=== PATIENT | female | born 1945 | race Caucasian/White ===

== ENCOUNTER 2016-12-17 11:49 | Inpatient (IN) | payer MEDICARE, OTHER ==
[~2016-12-17] VITALS: Ht 165.1 cm; Wt 68.0 kg
--- NOTE | ~2016-12-17 | ECH ---
Transthoracic Echocardiography Report (TTE) Demographics Patient Name VIBHA FANG Date of Study 12/17/2016 Patient Number [id number] Visit Number [id number] Date of 1945 Room Number 302 Accession Number [id number] Gender Female Age 71 year(s) Referring Armando Clancy Microscopist Carol Casillas MD [facility] Physician Interpreting Renny Hannah MD Reprographics Associate Physician Supervising Ordering Physician Armando Clancy MD/AMANDA GUTIÉRREZ Nurse Stress Garment Patternmaker Conclusions Summary Technically adequate exam. The estimated left ventricular ejection fraction is 30-35%. Diastolic assessment reveals Grade I diastolic dysfunction. Moderate mitral regurgitation by color Doppler. Mild tricuspid regurgitation by color Doppler. There is moderate pulmonary hypertension. The pulmonary pressure (RVSP) is 47 mmHg. Procedure Type of Study TTE procedure:Echo Complete SF. Procedure Date Date: 12/17/2016 Start: 03:49 PM Technical Quality: Adequate visualization Indications:Shortness of breath and Pulmonary embolus. Additional Indications:Hypoxia Appropriate Use Criteria: 9 Height: 65 inches Weight: 155 pounds BSA: 1.78 m Rhythm: NSR HR: 96 bpm BP: 135/81 mmHg M-Mode/2D Measurements LV Diastolic Dimension: 4.46 cm LV Systolic Dimension: 3.2 cm LV Septum Diastolic: 0.97 cm LV PW Diastolic: 0.94 cm AO Root Dimension: 2.85 cm Cardiac Output: 2.43 l/min LA Dimension: 3.62 cm Cardiac Index: 1.37 l/min*m RV Diastolic Dimension: 2.92 cm LA volume index: 21 ml/m LVOT: 1.83 cm LVOT VTI: 9.61 cm RV Base: 2.5 cm LV Stroke volume: 25.26 ml RV Mid: 1.9 cm LV Stroke volume index: 14.19 ml/m TAPSE: 1.9 cm TDI-S': 12 cm/s Doppler Measurements AV Peak Velocity: 0.9 m/s MV Peak E-Wave: 1.04 m/s AV Peak Gradient: 3.24 mmHg MV Peak A-Wave: 1.13 m/s AV Mean Gradient: 1.92 mmHg MV E/A Ratio: 0.91 LVOT Peak Velocity: 0.54 m/s MV P1/2t: 31.8 msec AV Area (Continuity):1.47 cm MV Deceleration Time: 118.8 msec TR Velocity:3.13 m/s MV Area (PHT): 6.92 cm TR Gradient:39.16 mmHg PV Peak Velocity: 0.69 m/s Estimated RAP:8 mmHg PV Peak Gradient: 1.93 mmHg Estimated RVSP: 47 mmHg Estimated PASP: 47.16 mmHg E' Septal Velocity: 0.06 m/s A' Septal Velocity: 0.07 m/s E' Lateral Velocity: 0.07 m/s A' Lateral Velocity: 0.12 m/s RA Area: 7.68 cm Findings Left Ventricle Normal left ventricle size and function. Diastolic assessment reveals Grade I diastolic dysfunction. Right Ventricle Normal right ventricle structure and function. Left Atrium Normal left atrial size. Lipomatous interatrial septum. Right Atrium Normal right atrial size. Mitral Valve Normal mitral valve structure and function. Moderate mitral regurgitation by color Doppler. Aortic Valve Normal aortic valve structure and function. Tricuspid Valve Normal tricuspid valve structure and function. Mild tricuspid regurgitation by color Doppler. There is moderate pulmonary hypertension. The pulmonary pressure (RVSP) is 47 mmHg. Pulmonic Valve The pulmonic valve is not well visualized. Pericardial Effusion No evidence of pericardial effusion. Miscellaneous Visualized portions of the aortic root and ascending aorta appear normal in size. Pleural Effusion No evidence of pleural effusion. Contractility Score LV regional wall motion:(0-Non visualized 1-Normal 2-Hypokinesis 3-Akinesis 4-Dyskinesis 5-Aneurysm) Signature
--- NOTE | ~2016-12-17 | CST ---
Cardiac Perfusion Imaging Demographics Patient Name LEONCIO Burch Gender Female Patient Number [id number] Race Visit Number [id number] Ethnicity Corporate ID Room Number 408 Accession Number [id number] Height 65 inches Date of 1945 Weight 155 pounds Age 71 year(s) BSA 1.78 m Referring Physician Renny Hannah MD BMI 25.79 kg/m Interpreting Physician [facility] Date of study 12/22/2016 Kelly Mckeon Supervising MD/MATYP Kelly ANDRES Technologist Lima Mckeon Ordering Physician Renny Hannah MD Stress Sheridan Mellisa welding technician Stress ECG Reading [facility] Nurse Kylie Emanuel Physician Kelly Marshall The procedure was explained in detail to the patient. Risks, complications and alternative treatments were reviewed. Written consent was obtained. Medications Reviewed with Patient prior to Procedure. Procedure Procedure Type: Nuclear Stress Test:Cardiac Study SF Procedure Start time: 12/22/2016 07:50 Indications: Dyspnea, Elevated Troponin and Family history of coronary artery disease. Risk Factors The patient risk factors include:former tobacco use, family history of premature CAD and chronic lung disease. Conclusions Summary Perfusion Images: The overall quality of the study is good. Left ventricular cavity is noted to be normal on the stress and normal on the rest images. There is no evidence of abnormal lung activity. The right ventricle is not visualized an cannot be assessed. Stress SPECT images reveal a medium sized area of moderate decreased isotope uptake involving the entire apex of the left ventricle. . Rest SPECT images reveal homogeneous tracer distribution Gated SPECT imaging reveals normal thickening and normal wall motion. Overall left ventricular ejection fraction was calculated to be normal at 57%. Impression 1. ECG portion of the stress test is clinically nondiagnostic for ischemia by diagnostic criteria. 2. Myocardial perfusion imaging is moderately abnormal. 3. The images reveal a reversible defect in the entire apex consistent with ischemia . 4. Overall left ventricular systolic function was normal. 5. This is a low to intermediate risk stress test. 6. There are no previous studies for comparison . Stress Protocols Resting ECG Normal sinus rhythm. Inferolateral ST depression and T wave inversions. Resting HR:74 bpm Resting BP:114/74 mmHg Stress Protocol:Pharmacologic Predicted HR: 150 bpm Test duration: 06:00 min Reason for termination:Infusion complete ECG Findings Normal sinus rhythm. Inferolateral ST depression and T wave inversions. Arrhythmias No rhythm abnormality. Symptoms Shortness of breath. Complications Procedure complication: None. Stress Interpretation EKG portion is non-diagnostic due to baseline EKG abnormalities . Imaging Results Summed scores - Summed stress score: 6 - Summed rest score: 0 - Summed difference score: 6 Stress ejection Ejection fraction:56 % EDV :48 ml ESV :21 ml Stroke volume :27 ml LV mass :86 gr Imaging Protocols Rest Stress Isotope:Tc99m Myoview IV Isotope: Tc99m Myoview IV Isotope dose:10.5 mCi Isotope dose:31.9 mCi Date:12/22/2016 06:30 Date:12/22/2016 08:00 Technique: SPECT Technique: Gated Supine SPECT Supine IV remains in place after procedure. Scan Time:45-60 minutes post Scan Time:15-30 minutes post injection injection Procedure Medications - Regadenoson (Lexiscan) 0.4 mg IV over 10-15 sec. I.V. 0.4 mg. Medications administered per verbal order and read back to physician prior to administration. Medical History Admission Data Admission date: 12/17/2016 Admission Time: 11:49 Hospital Status: Inpatient. Signatures
[~2016-12-17 11:49] MED LIST: ADVAIR DIS1 PUFF/DO1 IH; ALPRAZOLAM0.25 MG PO; CELEXA DPS20 MG PO; DELTASONE DPS20 MG PO; KEFLEX-DPS500 MG PO; KEPPRA DPS500 MG PO; MUCINEX600 MG PO; PROVENTIL2.5 MG/3 M IH; THERA1 EACH PO; VIBRAMYCIN-DPS100 M2 PO; VIMPAT100 MG PO
--- NOTE | 2016-12-19 12:18 | CO ---
ADMIT: 12/17/2016 RM/LOC: 302 [facility] MR#: [id number] [id number] [address] VIBHA FANG [address] [place] [address] Consultation SEX: F AGE: 71 : 1945 DATE OF CONSULTATION: 12/18/2016 ATTENDING PHYSICIAN: Joanna Roberts CONSULTING PHYSICIAN: Davian Hester MD, [facility] REASON FOR REFERRAL: Shortness of breath. HISTORY OF PRESENT ILLNESS: Ivanna is a 71-year-old female with severe emphysema. She is on oxygen at home, not steroid dependent. She has been having increasing shortness of breath this week. She was placed on steroids on Thursday. Came into the hospital for shortness of breath. She was admitted to the floor yesterday, but became worsening shortness of breath and with hypercarbia and was transferred to the ICU and put on BiPAP. She had a spiral CT, which showed emphysema. No pneumonia and very small possible subsegmental pulmonary embolisms, but unsure of this. This was due to somewhat suboptimal film. It also showed emphysema. The patient feels better since she was placed on BiPAP, but is off that now. She is not enjoying the BiPAP when she is on it. She states a month ago, she could walk limitlessly around her home and get up 4 steps. She has a minimal cough. No chest pain. No orthopnea. No fevers, chills, or night sweats. No pedal edema. No hemoptysis. Apparently, she has a positive influenza as well and was put on Tamiflu. With the questionable positive pulmonary embolism, she was placed on Lovenox 1 mcg/kg twice a day. PAST MEDICAL HISTORY: Remarkable for severe COPD, seizure disorder, colon cancer, hypothyroidism, osteopenia, anxiety, rhinitis, and depression. PAST MEDICAL HISTORY: As I mentioned above. PAST SURGICAL HISTORY: History of appendectomy, hysterectomy, sigmoid colon resection, and tonsillectomy. MEDICATIONS ON ADMISSION: 1. Advair. 2. Keppra. 3. Multivitamins. 4. Prednisone. 5. Spiriva. 6. Citalopram. 7. Doxycycline. 8. Keflex. 9. Benzoate. 10.Alprazolam. 11.DuoNeb. She is not on steroids chronically. ALLERGIES: SHE HAS NO KNOWN DRUG ALLERGIES. SOCIAL HISTORY: Quit smoking in 2000. . ADMIT: 12/17/2016 RM/LOC: 302 [facility] MR#: [id number] [address] [address] VIBHA FANG [address] [place] [address] Consultation SEX: F AGE: 71 : 1945 FAMILY HISTORY: Family history of breast cancer in sister. Heart disease in father. CURRENT MEDICATIONS: 1. Tamiflu. 2. Solu-Medrol 80 mg q.8 hours. 3. DuoNeb. 4. Alprazolam. 5. Tessalon Perles. 6. Vitamin D3. 7. Citalopram. 8. Doxycycline. 9. Advair. 10.Vimpat. 11.Levetiracetam. 12.Multivitamins. 13.Spiriva. REVIEW OF SYSTEMS: GENERAL: No fevers, chills, or night sweats. HEENT: No visual problems. No problems hearing. No problems swallowing. CARDIAC AND PULMONARY: Other than mentioned above is negative. GI: No nausea, vomiting, diarrhea, constipation, melena, or hematochezia. : No dysuria or pyuria. MUSCULOSKELETAL: No arthralgias or arthritis. SKIN: No easy bruising. PHYSICAL EXAMINATION: NEURO: She is moving all extremities. Speech is normal. IMAGING: CT scan reviewed. Laboratories reviewed. IMPRESSION: 1. Influenza A. 2. Chronic obstructive pulmonary disease. 3. Hypercarbic respiratory failure. ADMIT: 12/17/2016 RM/LOC: 302 [facility] MR#: [id number] [id number] [address] VIBHA FANG [address] [place] [address] Consultation SEX: F AGE: 71 : 1945 4. Questionable subsegmental PEs versus false positive. RECOMMENDATIONS AND DISCUSSION: The patient with questionable subsegmental PEs versus artifact, negative Dopplers. She has other explanations for hypoxia including influenza and her severe COPD. I do not feel that these need to be treated long-term. The [employer] of chest physician's recent recommendations are no need to treat subsegmental PEs. Given the entirety of the case, I feel that this is probably a false positive or certainly should be treated as low probability scan. It is not definitive for pulmonary embolism. I would continue her short-term on the Lovenox, but long- term I would not continue anticoagulation. I would continue her treatment for her influenza and her COPD acute exacerbation. I would use BiPAP p.r.n. Davian Hester MD, FCCP/ modl JOB #: [id number] CC: Joanna Roberts, Attending Physician Joanna Roberts, Family Physician
--- NOTE | 2016-12-20 07:04 | HP ---
ADMIT: 12/17/2016 RM/LOC: 424 [facility] MR#: [id number] [id number] [address] VIBHA FANG [address] [place] [address] History and Physical SEX: F AGE: 71 : 1945 DATE OF SERVICE: CHIEF COMPLAINT: Shortness of breath. HISTORY OF PRESENT ILLNESS: The patient is a 71-year-old female, saw nurse practitioner in the office today. Also saw her on Thursday. Was started on some steroids and antibiotics on Thursday and continue breathing treatments. Had some shortness of breath initially. The shortness of breath has continued and actually worsened. No fevers. No chills. No chest pain. No nausea. No vomiting. Overall was very tearful and states in the last 24 hours just feels not like herself. PAST MEDICAL HISTORY: 1. Severe COPD, oxygen-dependent with 2 L nasal cannula continuously. 2. Seizure disorder. 3. History of colon cancer. 4. Hypothyroidism. 5. Osteopenia. 6. Anxiety. 7. Rhinitis, allergic. 8. Depression. PAST SURGICAL HISTORY: Appendectomy, hysterectomy, sigmoid colon resection, and tonsillectomy. MEDICATIONS: Include: 1. Advair. 2. Keppra. 3. Multivitamin. 4. Prednisone. 5. Spiriva. 6. Citalopram. 7. Doxycycline recently started. 8. Keflex recently started. 9. Benzoate. 10.Alprazolam. 11.DuoNebs 4 times a day. SOCIAL HISTORY: Significant for former smoker. . Quit smoking in 2000. No alcohol use. FAMILY HISTORY: Significant for father with heart attack, heart disease at a young age of 48. Breast cancer in a sister. REVIEW OF SYSTEMS: As per HPI. Otherwise, completely reviewed and negative. PHYSICAL EXAMINATION: VITAL SIGNS: Blood pressure 104/68, O2 saturation 88% on 2 L. Respiratory rate 18, pulse 106, temperature 36.2 Celsius. GENERAL: She is alert and oriented x3. Tearful often. ADMIT: 12/17/2016 RM/LOC: 424 [facility] MR#: [id number] [address] VIBHA FANG [address] [place] [address] History and Physical SEX: F AGE: 71 : 1945 HEENT: Normocephalic, atraumatic. Pupils equal, round, and reactive to light and accommodation. Extraocular muscles intact. Dry mucous membranes. NECK: No lymphadenopathy. Soft, supple. Trachea midline. LUNGS: Extremely prolonged expiratory phase. Occasional end-expiratory rhonchi. Symmetric thoracic excursion. HEART: Regular rate and rhythm. No murmurs, rubs, or gallops. ABDOMEN: Soft, nontender, and nondistended. Bowel sounds present. EXTREMITIES: No cyanosis, clubbing, or edema. MUSCULOSKELETAL: 5/5 strength in all 4 extremities. NEUROLOGICAL: No focal deficits noted. Cranial nerves II through XII grossly intact. SKIN: She has a large ecchymoses on the right medial lower leg. Roughly 6 x 4 cm of various color healing. Otherwise, dry skin throughout. LABORATORY AND X-RAY DATA: Her troponin is mildly elevated at 0.4. Creatinine is normal at 0.2. ABG shows a pH of 7.4, pCO2 of 37.8, PO2 of 70. CTA of the chest shows a right lower lobe small subsegmental pulmonary emboli, although evaluation is limited due to respiratory motion and severe emphysema. ASSESSMENT: 1. Acute chronic obstructive pulmonary disease exacerbation. 2. Acute pulmonary embolism. 3. Positive troponin. 4. Anxiety. 5. History of colon cancer. PLAN: At this point in time, we will treat her for acute COPD exacerbation. Failed outpatient regimen. We will do IV steroids. Switch from doxycycline to Levaquin. She otherwise will need bronchodilator treatment. We will trend her troponin. I suspect it might be more demand ischemia or just chronically elevated. If it goes up, we will obviously start her on some heparin, have Cardiology see her. Certainly has risk factors with smoking history and family history. Could also be due to pulmonary embolism, although given the small questionable nature of PE, I doubt this would cause an elevated troponin. She is getting lower extremity Doppler's as well as TTE to further evaluate. We will await these findings. In the meantime, she is going to get Lovenox for anticoagulation therapeutic level. Laith Ruiz MD/ chaim JOB #: [id number] CC: Joanna Roberts, Attending Physician Joanna Roberts, Family Physician
[2016-12-23] MEDS ORDERED: TESSALON PERLE100 M1 PO (15:53)
[2016-12-23] MEDS ORDERED: VITAMIN D31000 UNIT PO (15:54)
[2016-12-23] MEDS ORDERED: SPIRIVA18 MCG IH (15:55)
[2016-12-23] MEDS ORDERED: COREG3.125 MG PO (15:56)
[2016-12-23] MEDS ORDERED: LIPITOR40 MG PO (15:57)
[2016-12-23] MEDS ORDERED: ZESTRIL DPS5 MG PO (15:57)
[2016-12-23] MEDS ORDERED: ASPIR-LOW81 MG PO (16:00)
--- NOTE | 2016-12-30 09:48 | DS ---
ADMIT: 12/17/2016 RM/LOC: 408 [facility] MR#: [id number] [address] [address] VIBHA FANG [address] [place] [address] Discharge Summary SEX: F AGE: 71 : 1945 ADMISSION DATE: 12/17/2016 DISCHARGE DATE: 12/22/2016 DISCHARGE DIAGNOSES: 1. Dyspnea. 2. Hypoxemia. 3. Acute hypoxic respiratory failure. 4. Acute hypercarbic respiratory failure. 5. Acute COPD (chronic obstructive pulmonary disease) exacerbation. 6. Influenza A. 7. New onset systolic CHF (congestive heart failure). 8. Elevated troponin I. 9. Abnormal stress test with apical ischemia. 10.Anxiety. 11.History of seizure disorder. 12.History of colon cancer, status post resection. 13.Hypothyroidism. 14.Osteopenia. 15.History of rhinitis. 16.History of depression. HOSPITAL COURSE: The patient was admitted from the office with acute hypoxemic respiratory failure. She actually developed hypercarbic respiratory failure and required BiPAP and was transferred to the ICU. She was found to have influenza A. She was also found to have a positive troponin I that was elevated. She also had some brief urinary retention. She then was noted by echo to have an abnormal echo. She did have a stress test which was positive for apical ischemia. She then did get a little volume overloaded and I gave her one dose of IV Lasix. She otherwise was doing better. She did have a stress test which was positive, but the patient wished to go home and have an outpatient heart catheterization. Therefore, the plan was for her to be discharged home. Her medications are well summarized in the chart. The plan is for her to follow up with Dr. Mendoza in one week and Dr. Roberts in one week. Otherwise, she is to continue her home O2 and all of her home medications, Prednisone 40 mg p.o. daily x5, Coreg 3.125 p.o. b.i.d., lisinopril, aspirin and Lipitor 40 mg p.o. daily. Joanna Roberts MD/ anju JOB #: [id number] CC: Joanna Roberts MD, Attending Physician Joanna Roberts MD, Family Physician
--- NOTE | 2017-01-26 15:03 | CO ---
ADMIT: 12/17/2016 RM/LOC: 302 [facility] MR#: [id number] [address] [address] CRISTINO FANG [address] [place] [address] Consultation SEX: F AGE: 71 : 1945 DATE OF CONSULTATION: 12/18/2016 ATTENDING PHYSICIAN: Joanna Roberts CONSULTING PHYSICIAN: David Lawson MD REASON FOR CONSULT: Elevated troponin. Sharon Blake RN, scribing for David Lawson MD HISTORY OF PRESENT ILLNESS: Cristino is a pleasant 71-year-old female who I have been asked to see in Cardiology consultation by Dr. Ruiz for elevated troponin. She has history of severe COPD. She was seen by Dr. Etienne Hayes in 2010, otherwise has not followed up with Cardiology since that time, but presented to [facility] yesterday with complaints of increased shortness of breath. Previously in the week, she had some shortness of breath, presented to primary care physician's office, was started on steroids and antibiotic as well as breathing treatments but continued to have symptoms worsening. She was direct admitted to the hospital where it was discovered that she was positive for influenza A and had a right lower lobe small subsegmental pulmonary embolus. CT also showed severe emphysema. Cardiac enzymes were checked due to her shortness of breath and they did demonstrate on initial set troponin of 0.424 which peaked on second set at 1.43 and the last 2 sets have slowly gone down to 1.15 on 4th troponin. 4th lab draw for cardiac enzymes did show a CK of 65 and MB of 10.7. CBC has been essentially normal. Currently, she is short of breath and is on BiPAP. She denies any chest pain, palpitations, peripheral edema, or orthopnea. Again her biggest complaint is her shortness of breath which she describes as severe. EKG showed sinus tachycardia with no significant ST elevation. PAST MEDICAL HISTORY: Hypothyroidism, asthma, severe COPD, emphysema on 2 L continuously at home, depression, history of acute pulmonary histoplasmosis, history of pelvic mass, allergic rhinitis, urinary frequency, history of seizure disorder, colon cancer, pharyngitis, and anxiety. PAST SURGICAL HISTORY: Includes total hysterectomy with bilateral salpingo oophorectomy, appendectomy, adenoidectomy, and tonsillectomy. ALLERGIES: SULFA, CARBAMAZEPINE. MEDICATIONS: 1. Celexa 20 every evening. 2. Keppra 1500 p.o. b.i.d. 3. Levaquin 500 p.o. daily. 4. Multivitamin 1 tab daily. 5. Vimpat 100 mg p.o. b.i.d. 6. Vitamin D 1000 units p.o. every 2 days. 7. Dulera 2 puffs inhalation b.i.d. 8. DuoNeb inhalation every 4 hours. ADMIT: 12/17/2016 RM/LOC: 302 [facility] MR#: [id number] [address] [place], [place] [id number] LEONCIOCRISTINO [address] [place] [address] Consultation SEX: F AGE: 71 : 1945 9. Spiriva 18 mcg inhalation daily. 10.Lovenox 70 mg subcutaneous every 12 hours. 11.Solu-Medrol 80 mg IV q.8 hours. FAMILY HISTORY: Positive family history of coronary artery disease, premature with father having a myocardial infarction at the age of 48. Positive family history of cancer in a sister who from breast cancer at the age of 50. SOCIAL HISTORY: Cristino is . She lives at home with her . She follows regular diet. She does exercise prior to infection recently. Former tobacco use for about 20 years, none currently. Coffee on a regular basis. No history of drug use. REVIEW OF SYSTEMS: GENERAL: Reports increased fatigue over the last week or so. No noted fevers and no noted weight changes. EYES: Denies any visual changes. THROAT, MOUTH and EARS: Denies hearing loss or problems with nose, mouth or throat. RESPIRATORY: Severe COPD with emphysema and asthma. Currently has a small right lower lobe pulmonary emboli and positive for influenza A. No hemoptysis. She is currently on BiPAP. GASTROINTESTINAL: Denies heartburn or difficulty swallowing. No change in bowel habits. Denies dark or bloody stools. No history of ulcers, hiatal hernia, or gallbladder or liver disease. GENITOURINARY: Denies dysuria, hematuria, nocturia, urinary tract infection, or kidney stones. Denies history of renal insufficiency or failure. MUSCULOSKELETAL: Denies history of arthritis or gout. Denies muscle or joint pains. ENDOCRINE: Denies history of thyroid dysfunction or diabetes. HEMATOLOGIC: History of colon cancer in 2010. Denies any bleeding issues currently. NEUROLOGIC: Denies chronic headaches, dizziness, syncope, stroke, seizures or numbness or tingling. PSYCHIATRIC: Cristino is quite anxious today, denies any depression. PHYSICAL EXAMINATION: VITAL SIGNS: Blood pressure 105/72, heart rate 89, respirations 24, temperature 97.1, and oxygenation 96% on BiPAP. EYES: Sclerae clear. No xanthelasmas. ENT: Oral mucosa is pink and moist. No jugular venous distention or carotid bruits. CHEST: Respirations are even and unlabored. Lungs are clear to auscultation. HEART: Regular rate and rhythm. Distant heart sounds. SKIN: Bruising on calf. ABDOMEN: Soft and nontender. MUSCULOSKELETAL: Gait is normal. EXTREMITIES: Peripheral pulses palpable. No clubbing, cyanosis or edema. PSYCHIATRIC: Alert and oriented. Mood and affect are appropriate. ADMIT: 12/17/2016 RM/LOC: 302 [facility] MR#: [id number] [address] [place] [id number] CRISTINO FANG [address] [place] [address] Consultation SEX: F AGE: 71 : 1945 LABORATORY DATA: CTA of chest on 12/17 shows right lower lobe small subsegmental PE, severe emphysema. Lab was positive for influenza A on respiratory panel. Sodium 138, potassium 4.0, BUN 19, creatinine 0.7, and glucose 137. White blood cell count 6.3, hemoglobin 13.1, hematocrit 40.0, and platelets 257. CK 65, MB 10.7, troponin 1.15 on 4th cardiac enzyme draw. ASSESSMENT/PLAN: 1. Abnormal troponin. 2. Influenza A. 3. Chronic obstructive pulmonary disease. 4. History of colon cancer. 5. Pulmonary embolism. In reviewing Cristino's lab work and EKG, her EKG and has appropriate elevated heart rate with respiratory issues. I suspect elevated troponin is secondary to demand ischemia and with her current illness. I will await echocardiogram to evaluate for wall motion abnormalities, valvular abnormalities, or decreased ejection fraction evaluation. She is already on Lovenox for anticoagulation for her pulmonary embolism. I will continue to follow her closely. Thank you for the consultation. I have read and agree with the documentation that has been completed regarding this visit. By signing this record, I attest that the documentation was completed in my physical presence and is an accurate record of the encounter. Sharon Blake RN / C. Camden Lawson MD / chaim JOB #: [id number] CC: Joanna Roberts, Attending Physician Joanna Roberts, Family Physician
[2017-02-12] MEDS ORDERED: AUGMENTIN 250250 MG PO (11:48)
== END 2016-12-22 15:38 | disposition home or self-care (01) | DRG 189 ==
LOC: 3ICU 11:49 → 4PCU 11:49 → 3ICU 23:45 → 4PCU 12-20 10:33
PROVIDERS: ADMIT Internal Medicine
DX: J96.01 Acute respiratory failure with hypoxia (principal); I24.8 Other forms of acute ischemic heart disease; I50.20 Unspecified systolic (congestive) heart failure; J44.1 Chronic obstructive pulmonary disease with (acute) exacerbation; J96.02 Acute respiratory failure with hypercapnia; J10.1 Influenza due to other identified influenza virus with other respiratory manifestations; E87.70 Fluid overload, unspecified; E03.9 Hypothyroidism, unspecified; J45.909 Unspecified asthma, uncomplicated; G40.909 Epilepsy, unspecified, not intractable, without status epilepticus; M85.80 Other specified disorders of bone density and structure, unspecified site; F41.9 Anxiety disorder, unspecified; F32.9 Major depressive disorder, single episode, unspecified; Z99.81 Dependence on supplemental oxygen; Z85.038 Personal history of other malignant neoplasm of large intestine; Z87.891 Personal history of nicotine dependence; Z79.52 Long term (current) use of systemic steroids; Z82.49 Family history of ischemic heart disease and other diseases of the circulatory system

== ENCOUNTER 2017-01-06 06:51 | Day surgery (SDC) | payer MEDICARE, OTHER ==
[~2017-01-06] VITALS: Ht 165.1 cm; Wt 68.0 kg
--- NOTE | ~2017-01-06 | CATH ---
Cardiac Diagnostic Report Demographics Patient Name LEONCIO Burch Gender Female Date of 1945 Age 71 year(s) Patient Number [id number] Date of Study 01/06/2017 Visit Number [id number] Room Number Corporate ID Ht 165.1 cm Wt 67.59 kg Accession Number [id number] BSA 1.75 m kg/m Referring Kelly GUTIÉRREZ Primary Physician Physician Mike Clancy MD Performing Fruehling Jeffrey R Secondary Physician Physician Diagnostic Fruehling Jeffrey R Assisting Physician Physician Interventional Physician Staff Climate Scientist Physician Findings and Conclusions Diagnostic Findings and Conclusion 1) No significant CAD. 2) EDP 14mmHg. Diagnostic Recommendations Medical management of cardiomyopathy. Procedure Description The patient was brought to the diagnostic cardiac catheterization laboratory in the fasting, non-sedated state. Informed consent was obtained in the written and verbal form after the risks and benefits were explained. The patient had no further questions and agreed to proceed. The planned puncture-incision site(s) were shaved and prepped with ChloraPrep and draped in the usual sterile manner. Conscious sedation, supplemental oxygen, and pain control medications were delivered by a registered nurse under physician guidance. Surface ECG rhythm, blood pressure measurement, and pulse oximetry were monitored throughout the procedure. Arterial access. The access site was infiltrated with lidocaine. The right radial vessel was entered with the Seldinger technique. A 6F radial sheath was advanced into the vessel and used for catheter placement. Selective right coronary angiography. A 6F FR4 catheter was advanced into the right coronary vessel ostium under fluoroscopic guidance. Contrast was injected by hand. Images were obtained in multiple projections. Selective left coronary angiography. A 6F JL 3.5 catheter was advanced into the left coronary vessel ostium under Fluoroscopic guidance. Contrast was injected by hand. Images were obtained in multiple projections. Left heart catheterization. A catheter was advanced across the aortic valve to the left ventricle under fluoroscopic guidance. Resting hemodynamics were obtained. Arterial artery hemostasis was achieved using a TR band. The patient was transferred to a regular nursing floor via cart accompanied by a nurse. The patient left the laboratory in stable condition. Diagnostic Cath Status: Elective Procedure Procedure Type Diagnostic procedure:Angiography:, Coronary Angios w/[facility] Indications: Abnormal Stress Test and Cardiomyopathy. The procedure was explained in detail to the patient. Risks, complications and alternative treatments were reviewed. Written consent was obtained. Medications Reviewed with Patient prior to Procedure. Complications: No Complication. Angiographic Findings Dominance: Right Cardiac Arteries and Lesion Findings LMCA: Normal (0% Stenosis). LAD: Normal (0% Stenosis). LCx: Abnormal. Lesion on 2nd Ob Fabby: Proximal subsection.30% stenosis . RCA: Abnormal. Lesion on Dist RCA: 40% stenosis . Coronary Tree Procedure Data Procedure Date Date: 01/06/2017Start: 09:17 AM Entry Locations - Percutaneous access was performed through the Right Radial artery (Primary location). A 6 Fr sheath was inserted. Hemostasis was successfully obtained using a TR band. Procedure Medications Order and Administration + + +-------+ + !Time !Medication !Dosage !Route ! + + +-------+ + !01/06/2017 !Oxygen !2 l/min!NC ! !09:02 AM ! ! ! ! + + +-------+ + 01/06/2017 !Versed !1 mg !I.V. ! !09:19 AM ! ! ! ! + + +-------+ 01/06/2017 !Sodium Chloride !10 ml !I.V. ! !09:22 AM ! ! ! ! + + +-------+ + !01/06/2017 !SF Radial Cocktail: 200mcg Nitro, 2.5 ! !I.A. ! !09:23 AM !mg Verapamil, 5000u Heparin ! ! ! + + +-------+ + !01/06/2017 !0.9% NaCl !250 ml !I.V. bolus! !09:26 AM ! ! ! ! + + +-------+ + !01/06/2017 !Fentanyl !25 mcg !I.V. ! !09:25 AM ! ! ! ! + + +-------+ + Devices Used - ACATH 6F FR4 CATHETER 100CMwas used for:Right coronary angiography. - ACATH 6FR FL3.5 CATHETER 100CMwas used for:Left coronary angiography. Contrast Material - Isovue 35773 ml Fluoroscopy Time: Diagnostic: 1:36 minutes. Total: 1:36 minutes. Fluoroscopy Dose: Diagnostic: 122 mGy. Total: 122 mGy. Estimated Blood Loss: 10 ml. Medical History Allergies - Sulfa. - Other:(macrodantin and tegretol). Risk Factors The patient risk factors include:hypercholesterolemia, family history of premature CAD, chronic lung disease, last creatinine: 0.8 mg/dl, creatinine clearance: 69.81 ml/min, dyslipidemia and former tobacco use. Admission Data Admission Date: 01/06/2017 Admission Time: 06:51 AM Insurance Payors: Medicare. Clinical Evaluation Leading to Procedure Diagnosed on 12/30/2016 10:00 AM. - The patient's CAD presentation was assessed as: Unstable angina. - Anti-anginal medications were prescribed during the past two weeks. The medications are: Beta Blockers and Long Acting Nitrates. 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 Hemodynamics Condition: Rest O2 Consumption: Estimated: 156.83Heart Rate: 63 bpm Pressures (mmHg) +-----+ + !Site !Pressure ! +-----+ + !LV !72/3 ,13 ! +-----+ + !LV !74/2 ,14 ! +-----+ + !AO !74/43 (57) ! +-----+ + !LV !74/3 ,13 ! +-----+ + Valve Gradients and Areas + +---------+---------+---------+ +---------+ + !Valve !Peak !Mean !Area !Index !Flow !Source ! + +---------+---------+---------+ +---------+ + !Aortic !3 !0 ! ! ! ! ! + +---------+---------+---------+ +---------+ + !Aortic !3 !0 ! ! ! ! ! + +---------+---------+---------+ +---------+ + Shunts Oxygen Values O2 Capacity 175.44 O2 Consumption 156.83 Discharge Data Discharge Date: 01/06/2017 Hospital Status: Outpatient Signatures
[~2017-01-06 06:51] MED LIST changes: +ASPIR-LOW81 MG PO; +COREG3.125 MG PO; +LIPITOR40 MG PO; +SPIRIVA18 MCG IH; +TESSALON PERLE100 M1 PO; +VITAMIN D31000 UNIT PO; +ZESTRIL DPS5 MG PO
[2017-02-12] MEDS ORDERED: AUGMENTIN 250250 MG PO (11:48)
== END 2017-01-06 13:36 | disposition home or self-care (01) ==
LOC: SSS 06:51
DX: I25.110 Atherosclerotic heart disease of native coronary artery with unstable angina pectoris (principal); I42.9 Cardiomyopathy, unspecified; J44.9 Chronic obstructive pulmonary disease, unspecified; E78.5 Hyperlipidemia, unspecified; J45.909 Unspecified asthma, uncomplicated; F41.9 Anxiety disorder, unspecified; F32.9 Major depressive disorder, single episode, unspecified; E05.90 Thyrotoxicosis, unspecified without thyrotoxic crisis or storm; Z88.2 Allergy status to sulfonamides; Z88.8 Allergy status to other drugs, medicaments and biological substances; Z90.710 Acquired absence of both cervix and uterus; Z79.82 Long term (current) use of aspirin; Z98.890 Other specified postprocedural states; Z90.49 Acquired absence of other specified parts of digestive tract

== ENCOUNTER → 2017-02-04 | Outpatient (CLI) | payer MEDICARE, OTHER ==
[~2017-02-04] MED LIST changes: +AUGMENTIN 250250 MG PO
== END | disposition home or self-care (01) ==
LOC: RAD.S 10:03
DX: Z12.31 Encounter for screening mammogram for malignant neoplasm of breast (principal); Z80.3 Family history of malignant neoplasm of breast; Z85.038 Personal history of other malignant neoplasm of large intestine

== ENCOUNTER 2017-02-07 16:24 | Inpatient (IN) | payer MEDICARE, OTHER ==
[~2017-02-07] VITALS: Ht 165.1 cm; Wt 70.8 kg
[~2017-02-07 16:24] MED LIST changes: -AUGMENTIN 250250 MG PO
--- NOTE | 2017-02-09 00:30 | HP ---
ADMIT: 02/07/2017 RM/LOC: 305 [facility] MR#: [id number] [address] [address] CRISTINO FANG [address] [place] [address] History and Physical SEX: F AGE: 71 : 1945 DATE OF SERVICE: CHIEF COMPLAINT: Respiratory failure. HISTORY OF PRESENT ILLNESS: Cristino is a 71-year-old white female with O2 dependent COPD, who had been feeling well until the day of admission. She and her were going to go to [employer] to have dinner at about 4:30. At that time, she started having difficulty breathing. Her noted that she had been feeling fine up until that point. Instead of going to [employer], she requested to be taken to the emergency room. In the emergency room, she was noted to be hypoxemic more than normal and in respiratory distress. She is well known to the emergency room staff and they evaluated her and felt there was possibly something more going on. A CT pulmonary angiogram was performed and showed pneumonia right greater than left. No pulmonary emboli. She has had some recent issues with what appears to be a nonischemic cardiomyopathy. Her ejection fraction on an echocardiogram on 12/17/2016 was 30% to 35%. She was also noted to have some pulmonary hypertension. Due to an elevated troponin found during her recent hospitalization, she eventually underwent a heart catheterization about a week or so ago. It showed minor disease. There have been some medication changes and her is a little unclear about them. I did review with him some of her medications and he thought she was on Lipitor. She said that she had told the nurses she was not taking it. I also had that she was on carvedilol as well as lisinopril. He thought she was only on the carvedilol. The chart at the office shows Ranexa, but he thought that she was told to stop that by someone. Most recent note in the chart that I am looking at is that she was to continue taking it and she where she had gotten samples from I believe [facility]. The final medication of confusion is that when he came in through the emergency room, they mentioned she was taking Plavix, but there is no record of that here or through Cardiology after to bring medications in to review. She was placed on oxygen and eventually prior to going in to the hospital, BiPAP started. She is currently doing much better with this. PAST MEDICAL HISTORY: 1. Pulmonary histoplasmosis. 2. Allergic rhinitis. 3. Anxiety. 4. COPD - O2 dependent. 5. Depression. 6. History of colon cancer, status post resection. 7. Hypothyroidism. 8. Hypoxemia. 9. Osteopenia. 10.Seizure disorder. 11.Heart disease - nonocclusive with heart cath on 01/06/2017 showing 30% second obtuse marginal and 40% distant distal RCA. 12.Nonischemic cardiomyopathy as her heart cath was negative, echo with ejection fraction of 30% to 35% on 12/17/2016. 13.Pulmonary hypertension with RVSP of 47 also. ADMIT: 02/07/2017 RM/LOC: 305 [facility] MR#: [id number] [facility] [address] [address] CRISTINO FANG [address] [place] [address] History and Physical SEX: F AGE: 71 : 1945 14.Recurrent acute hypoxic respiratory failure with hypercarbia. 15.Influenza A 12/05. 16.Congestive heart failure - acute systolic. 17.Elevated troponin 01/05 felt to be demand ischemia. 18.Appendectomy. 19.Hysterectomy with total BSO in 1988. 20.T and A. MEDICATIONS: Per office list and these may need to be updated includin. DuoNebs q.6 p.r.n., which her said she is not using routinely. 2. Xanax 0.25 t.i.d. p.r.n. 3. Aspirin 81 mg daily. 4. Lipitor 40 mg daily. 5. Tessalon Perles 100 t.i.d. p.r.n. 6. Carvedilol 3.125 b.i.d. 7. Keflex 500 mg daily (not sure she is taking this). 8. Vitamin D3, 1000 International Units daily. 9. Celexa 20 mg daily. 10.Advair 250/50 b.i.d. 11.Vimpat 100 mg b.i.d. 12.Keppra 500 mg three tablets twice daily. 13.Prinivil 5 mg daily. 14.Vitamin daily. 15.Ranexa, unknown dose and she is taking. 16.Spiriva one inhalation daily. ALLERGIES: NITROFURANTOIN WITH NAUSEA. SULFA UNKNOWN. TEGRETOL UNKNOWN. SOCIAL HISTORY: She is a former smoker and quit in 2000. No alcohol. No smokeless tobacco. She is . FAMILY HISTORY: Father with heart disease at 48. Sister with breast cancer. Mother is living alone at this time in the upper 90s. PHYSICAL EXAMINATION: VITAL SIGNS: Blood pressure 155/95 in the emergency room, pulse 100, respirations 36, and temp 99.3. GENERAL: This is a well-developed, well-nourished white female, affect appropriate. Currently wearing BiPAP and comfortable. Earlier in hospital stay, it sounds like she was pretty agitated. SKIN: Warm and dry. HEENT: Normocephalic and atraumatic. Anicteric. BiPAP mask in place. NECK: Supple. LUNGS: Diminished, but clear. CARDIOVASCULAR: Heart is regular and distant. I am not sure if a murmur was auscultated and I could not really hear one. No ectopy at this point. ABDOMEN: Soft and nontender. AND RECTAL: Deferred. ADMIT: 02/07/2017 RM/LOC: 305 [facility] MR#: [id number] 2620 [facility] [address] [place] [id number] [place] [address] History and Physical SEX: F AGE: 71 : 1945 EXTREMITIES: With no edema. IMPRESSION: 1. Acute respiratory failure. 2. Chronic obstructive pulmonary disease - O2 dependent. 3. Pneumonia, right greater than left. 4. Hypoxemia. 5. Nonischemic cardiomyopathy. 6. Hypothyroid. 7. Seizure disorder. 8. Questionable med compliance or confusion. DISCUSSION: We will clarify her medications once she becomes a little more alert and go over what she is actually taking. I think it is a great deal of confusion at least on my part. Continue antibiotics and steroids. See chart. PLAN: See chart. Zunilda Mullins MD/ chaim JOB #: [id number] CC: Joanna Roberts, Attending Physician Joanna Roberts, Family Physician
--- NOTE | 2017-02-09 08:23 | ER ---
ADMIT: 02/07/2017 RM/LOC: 305 [facility] MR#: [id number] [address] [address] VIBHA FANG [address] [place] [address] Emergency Room Report SEX: F AGE: 71 : 1945 DATE: 02/07/2017 TIME: 1624 hours. Please refer to my T-sheet for complete H and P. HISTORY OF PRESENT ILLNESS: Briefly, the patient is a 71-year-old, who comes in with short of breath and chest pain. She has multiple comorbidities. She has a history of cardiac disease, congestive heart failure, VA, and severe COPD. She has a port from colon cancer in the past. She has anxiety and depression. She has had urinary tract infections before, but she said about 2 hours ago became more and more short of breath while sitting and exertion did not make a difference. She has maybe had a little bit of discomfort when she urinates too she does mention. PHYSICAL EXAMINATION: VITAL SIGNS: Here; her blood pressure is 155/95, pulse 100, respirations 36, temp 99.3, and saturating 90% on room air. GENERAL: She is anxious. HEENT: Grossly normal. LUNGS: Coarse with decreased breath sounds throughout especially on the right. HEART: Regular. ABDOMEN: Soft. EXTREMITIES: She has no acute findings. NEUROLOGIC: Alert and oriented. Nonfocal. EMERGENCY DEPARTMENT COURSE: We did a sepsis pathway. Chest x-ray revealed a right-sided infiltrate. CBC was normal except white count 20.5. Chemistries normal except glucose 108. Cardiac enzymes negative. Lactate was normal 1.3. Coags were normal. UA showed 570 white cells, positive nitrite, and 3+ leukocyte esterase. Her ABG revealed on 2 L a pH 7.373, pCO2 of 39.8, and PO2 of 58. EKG was sinus rhythm, rate 100, no hyperacute changes. Due to her significant hypoxemia, we are going to CT scan; however, we started sepsis pathway, will be in a little bit slow with the fluids in the fact that she has CHF and her lactate is okay at this point, so we gave her 500 mL bolus, Decadron 10 IV, and a DuoNeb. Started antibiotics. Sent the blood cultures, and I talked to Dr. Mullins. We will admit to the hospital. The patient has ADMIT: 02/07/2017 RM/LOC: 305 [facility] MR#: [id number] [address] [address] VIBHA FANG [address] [place] [address] Emergency Room Report SEX: F AGE: 71 : 1945 had a tenuous course in the past. I am concerned. We will admit her to the ICU. ASSESSMENT: 1. Pneumonia. 2. Hypoxemia. 3. Urinary tract infection. 4. Early sepsis. 5. Multiple comorbidities. PLAN: She will get a CAT scan of her chest to rule out PE and be admitted to the ICU in the care of Susanna. Jaziel Horn MD/ chaim JOB #: [id number] CC: Joanna Roberts MD, Attending Physician Joanna Roberts MD, Family Physician
[2017-02-12] MEDS ORDERED: AUGMENTIN 250250 MG PO (11:48)
--- NOTE | 2017-02-19 12:10 | DS ---
ADMIT: 02/07/2017 RM/LOC: [address] [place] [address] MR#: [id number] [address] [address] VIBHA FANG [address] [place] [address] Discharge Summary SEX: F AGE: 71 : 1945 ADMISSION DATE: 02/07/2017 DISCHARGE DATE: 02/11/2017 DISCHARGE DIAGNOSES: 1. Acute respiratory failure. 2. Acute hypoxemic respiratory failure. 3. Chronic obstructive pulmonary disease with acute exacerbation. 4. Bilateral pneumonia. 5. Enterobacter cloacae UTI (urinary tract infection). 6. Hypotension. 7. Nonischemic cardiomyopathy. 8. Hypothyroidism. 9. History of seizure disorder. 10.History of anxiety. 11.History of colon cancer, status post resection. 12.History of non ST-elevation OR (myocardial infarction). 13.History of weakness. HOSPITAL COURSE: The patient was admitted initially to the ICU. Did require BiPAP. She was given IV antibiotics, IV steroids, did make quite a bit of improvement, overall was doing much better. The plan was changed over to pill steroids. Her urine came back with a culture and sensitivity. The plan was for her to be discharged home. DISCHARGE MEDICATIONS: 1. Aspirin 162 p.o. daily. 2. Celexa 20 mg p.o. at bedtime. 3. Coreg 3.125 p.o. daily. 4. Prednisone 20 mg p.o. daily x5. 5. Keppra 500 mg p.o. b.i.d. ADMIT: 02/07/2017 RM/LOC: [address] [place] [address] MR#: [id number] [address] [address] LEONCIO VIBHA Kiersten [address] [place] [address] Discharge Summary SEX: F AGE: 71 : 1945 6. Lipitor 40 mg p.o. at bedtime. 7. Vimpat 100 mg p.o. b.i.d. 8. Lisinopril 5 mg p.o. daily. 9. Advair 250/50 two puffs b.i.d. 10.Spiriva daily. 11.Augmentin 875 p.o. b.i.d. No Ranexa. FOLLOWUP: Dr. Joanna Roberts in one week. Otherwise, I spent 35 minutes on the discharge planning and coordination of care. Joanna Roberts MD/ ajf JOB #: [id number] CC: Joanna Roberts MD, Attending Physician Joanna Roberts MD, Family Physician
== END 2017-02-11 10:35 | disposition home or self-care (01) | DRG 189 ==
LOC: ER 16:24 → 4PCU 18:45 → 3ICU 18:45 → 4PCU 02-08 17:33
PROVIDERS: ADMIT Internal Medicine
DX: J96.01 Acute respiratory failure with hypoxia (principal); J18.9 Pneumonia, unspecified organism; I95.9 Hypotension, unspecified; I42.9 Cardiomyopathy, unspecified; I27.2 Other secondary pulmonary hypertension; J44.0 Chronic obstructive pulmonary disease with (acute) lower respiratory infection; N39.0 Urinary tract infection, site not specified; I50.9 Heart failure, unspecified; B95.2 Enterococcus as the cause of diseases classified elsewhere; F41.9 Anxiety disorder, unspecified; F32.9 Major depressive disorder, single episode, unspecified; I25.2 Old myocardial infarction; J30.9 Allergic rhinitis, unspecified; E03.9 Hypothyroidism, unspecified; M85.80 Other specified disorders of bone density and structure, unspecified site; G40.909 Epilepsy, unspecified, not intractable, without status epilepticus; Z87.891 Personal history of nicotine dependence; Z99.81 Dependence on supplemental oxygen; Z85.038 Personal history of other malignant neoplasm of large intestine